=== PATIENT | female | born 1950 | race Caucasian/White ===

== ENCOUNTER 2022-04-23 06:34 | Observation (INO) | payer MEDICARE, OTHER ==
[~2022-04-23 06:34] MED LIST: Acetaminophen 325 MG Tab PO SCH; Lidocaine 1% 4 ML ONE; Lidocaine 1%/Sod Bicarbonate in NS 8.4% 1 ML Syringe IDERM PRN; Midazolam 1 MG/ML 2 ML SDV ONE; Morphine 8 MG, EPINEPHrine 0.3 MG, Cefuroxime 750 MG, Ketorolac 30 MG, Sodium Chloride ... PRN; Pregabalin 25 MG Cap PO SCH; Propofol 200 MG/20 ML SDV ONE; Sodium Chloride 0.9% 10 ML Syringe FLUSH PRN; Vancomycin 1 GM SDV ONE; ceFAZolin 2 GM Vial ONE; fentaNYL 100 MCG/2 ML SDV ONE; oxyCODONE ER 10 MG TAB.ER PO SCH
[2022-04-23] MEDS: Lactated Ringers 1,000 ML IV SCH ×2 (06:35→12:30)
[2022-04-23] MEDS ORDERED: Lactated Ringers 1,000 ML ONE (07:27)
[2022-04-23] MEDS ORDERED: Ondansetron 4 MG/2 ML SDV IVPUSH PRN (07:35)
[2022-04-23] MEDS ORDERED: diphenhydrAMINE 50 MG/ML SDV IVPUSH PRN (07:35)
[2022-04-23] MEDS ORDERED: fentaNYL 100 MCG/2 ML SDV IVPUSH PRN (07:35)
[2022-04-23] MEDS ORDERED: Ondansetron 4 MG/2 ML SDV ONE (07:47)
[2022-04-23] MEDS ORDERED: Ketorolac 30 MG/ML SDV ONE (07:47)
[2022-04-23] MEDS ORDERED: ePHEDrine 50 MG/ML SDV ONE (08:07)
[2022-04-23] MEDS ORDERED: Propofol 200 MG/20 ML SDV ONE (08:16)
[2022-04-23] MEDS ORDERED: Albuterol/Ipratropium 3.0-0.5 MG/3 ML Neb Soln NEB PRN (13:34)
[2022-04-23] MEDS: oxyCODONE 5 MG Tab PO PRN ×2 (16:00→20:22)
[2022-04-23] MEDS ORDERED: Cyclobenzaprine 10 MG Tab PO PRN (16:31)
[2022-04-23] MEDS ORDERED: oxyCODONE 5 MG Tab PO PRN (16:31)
[2022-04-23] MEDS ORDERED: Morphine 2 MG/ML SYRINGE IVPUSH PRN (16:32)
[2022-04-23] MEDS ORDERED: Naloxone 0.4 MG/ML SDV IVPUSH PRN (16:32)
[2022-04-23] MEDS: Sodium Chloride 0.9% 10 ML Syringe FLUSH SCH (19:17)
[2022-04-23] MEDS: Cyclobenzaprine 10 MG Tab PO PRN (22:27)
[2022-04-24] MEDS: oxyCODONE 5 MG Tab PO PRN ×2 (00:22→15:19)
[2022-04-24] MEDS: Albuterol/Ipratropium 3.0-0.5 MG/3 ML Neb Soln NEB PRN ×2 (08:09→14:59)
[2022-04-24] MEDS: Apixaban 2.5 MG Tab PO SCH ×2 (08:44→20:48)
[2022-04-24] MEDS: Acetaminophen 325 MG Tab PO PRN ×3 (10:28→21:26)
[2022-04-24] MEDS: Cyclobenzaprine 10 MG Tab PO PRN ×2 (10:28→21:24)
[2022-04-24] MEDS ORDERED: HYDROCHLOROTHIAZIDE PO SCH (10:30)
[2022-04-24] MEDS ORDERED: [UNRECOGNIZED DRUG - OTHER] PO SCH (10:30)
[2022-04-24] MEDS ORDERED: Non-Formulary Medication 1 Each (Sitagliptin Phos/Metformin Hcl [Janumet 50-1,000 Mg] 1 EA PO SCH ×2 (10:30→21:00)
[2022-04-24] MEDS ORDERED: LOSARTAN PO SCH (10:30)
[2022-04-24] MEDS ORDERED: Non-Formulary Medication 1 Each (Dapagliflozin Propanediol [Farxiga] 10 MG Tablet) PO SCH (11:00)
[2022-04-24] MEDS ORDERED: Metoprolol Succinate 25 MG Tab.ER PO SCH ×2 (11:30→12:00)
[2022-04-24] MEDS ORDERED: Losartan 100 MG Tab PO SCH (11:30)
[2022-04-24] MEDS ORDERED: Citalopram 20 MG Tab PO SCH (11:30)
[2022-04-24] MEDS ORDERED: Hydrochlorothiazide 25 MG Tab PO SCH (11:30)
[2022-04-24] MEDS ORDERED: Albuterol/Ipratropium 3.0-0.5 MG/3 ML Neb Soln NEB SCH (17:30)
[2022-04-24] MEDS: Insulin Lispro 100 Unit/ML 3 ML KwikPen SUBCUT SCH ×2 (17:52→20:43)
[2022-04-24] MEDS: Citalopram 20 MG Tab PO SCH (19:48)
[2022-04-24] MEDS: Magnesium Oxide 400 MG Tab PO SCH (19:48)
[2022-04-24] MEDS ORDERED: Rosuvastatin 10 MG Tab PO SCH ×2 (21:00)
[2022-04-24] MEDS ORDERED: FENOFIBRATE 160 MG PO SCH (21:00)
[2022-04-24] MEDS ORDERED: metFORMIN 500 MG Tab PO SCH (21:00)
[2022-04-24] MEDS: Albuterol/Ipratropium 3.0-0.5 MG/3 ML Neb Soln NEB SCH (22:16)
[2022-04-25] MEDS: oxyCODONE 5 MG Tab PO PRN ×3 (00:56→12:37)
[2022-04-25] MEDS: Albuterol/Ipratropium 3.0-0.5 MG/3 ML Neb Soln NEB SCH ×2 (04:16→08:28)
[2022-04-25] MEDS: Acetaminophen 325 MG Tab PO PRN ×2 (05:54→12:36)
[2022-04-25] MEDS: Insulin Lispro 100 Unit/ML 3 ML KwikPen SUBCUT SCH ×2 (07:57→12:38)
[2022-04-25] MEDS: Apixaban 2.5 MG Tab PO SCH ×2 (07:57→09:00)
[2022-04-25] MEDS ORDERED: HYDROCHLOROTHIAZIDE PO SCH (09:00)
[2022-04-25] MEDS ORDERED: LOSARTAN PO SCH (09:00)
[2022-04-25] MEDS: Citalopram 20 MG Tab PO SCH (09:00)
[2022-04-25] MEDS: Magnesium Oxide 400 MG Tab PO SCH (09:00)
[2022-04-25] MEDS ORDERED: [UNRECOGNIZED DRUG - OTHER] PO SCH (09:00)
[2022-04-25] MEDS: Cyclobenzaprine 10 MG Tab PO PRN (10:03)
[2022-04-29] MEDS ORDERED: Non-Formulary Medication 1 Each (Semaglutide [Ozempic] 1 MG/0.75 ML Pen.Injctr) SQ SCH (10:26)
== END 2022-04-25 15:10 | disposition home or self-care (01) ==
LOC: JD.SDS 06:34 → JD.OB 16:49 → JD.SDS 04-24 13:01
PROVIDERS: ADMIT Orthopaedic Surgery; ATTEND Orthopaedic Surgery
DX: M16.11 Unilateral primary osteoarthritis, right hip (principal); I10 Essential (primary) hypertension; E55.9 Vitamin D deficiency, unspecified; E78.2 Mixed hyperlipidemia; E11.51 Type 2 diabetes mellitus with diabetic peripheral angiopathy without gangrene; E11.49 Type 2 diabetes mellitus with other diabetic neurological complication; E11.65 Type 2 diabetes mellitus with hyperglycemia; E11.21 Type 2 diabetes mellitus with diabetic nephropathy; M81.0 Age-related osteoporosis without current pathological fracture; I25.10 Atherosclerotic heart disease of native coronary artery without angina pectoris; I35.8 Other nonrheumatic aortic valve disorders; Z79.899 Other long term (current) drug therapy; Z98.890 Other specified postprocedural states; Z87.891 Personal history of nicotine dependence
CPT/HCPCS: 0055T; 27130; 36415; 71045; 73501; 82947; 86850; 86900; 86901; 94640; 94761; 97110; 97116; 97161; 97166; 97535; A9270; C1713; C1776; G0378; J0171; J0690; J0697; J1815; J1885; J2250; J2270; J2405; J2704; J3010; J3370; J7120; 01214; J7620-GY